=== PATIENT | female | born 1950 | race Two or more races ===

== ENCOUNTER → 2022-02-28 | Outpatient (CLI) | payer MEDICARE | LOC: EDSEX 12:30 → MAMMO 13:10 | PROVIDERS: ATTEND Internal Medicine | DX: Z12.31 Encounter for screening mammogram for malignant neoplasm of breast (principal) | CPT/HCPCS: 77067 ==

== ENCOUNTER → 2023-12-25 | Outpatient (REF) | payer MEDICARE | LOC: MAMMO 14:11 | PROVIDERS: ATTEND Internal Medicine | DX: Z12.31 Encounter for screening mammogram for malignant neoplasm of breast (principal) | CPT/HCPCS: 77067 ==